=== PATIENT | male | born 1995 | race Caucasian/White ===

== ENCOUNTER → 2020-12-30 02:39 | Outpatient (CLI) | payer BC, SELFPAY ==
[2020-12-30 18:21] LABS: SARS-CoV-2 RNA PCR Negative
== END ==
PROVIDERS: Visit Provider Plastic Surgery
DX: Z01.812 Encounter for preprocedural laboratory examination (principal); Z20.822 Contact with and (suspected) exposure to COVID-19
CPT/HCPCS: C9803; U0003; U0005

== ENCOUNTER 2021-01-02 01:04 | Day surgery (SDC) | payer BC, SELFPAY ==
[2020-12-30 14:32] VITALS: BMI 31.7
[2021-01-02] VITALS (10 sets, daily range): BP systolic 139–156; BP diastolic 73–89; PULSE 64–94; RESP 12–20; TEMP 36.3–36.4; O2SAT 90–100; BMI 32.5
--- NOTE | ~2021-01-02 | XR_ITS ---
EXAMINATION: XR surgery orthopedic DATE: 01/02/2021 10:41 INDICATION: Fixation of closed fractures of the right fourth and fifth metacarpals. TECHNIQUE: 5 fluoroscopic images of the right hand were obtained during procedure performed by Dr. Mitchell. Radiologist was not present for the imaging or procedure. The amount of fluoroscopy time used du ring this procedure was 4.4 minutes. COMPARISON: None. FINDINGS: Distal to proximally directed percutaneous pin fixation spanning a mildly comminuted extra articular fracture at the proximal metadiaphyseal region of the fifth metacarpal. The distal tip of the pin ext ends into the base of the hook of the hamate. There is approximately one cortical with residual dorsa l displacement and minimal palmar angulation. An additional minimally displaced and unfixed small fra cture fragment is seen along the radial side of the main fracture plane. Proximal to distal directed percutaneous pin fixation spanning an oblique extra-articular fracture of the proximal diaphysis of t he fourth metacarpal the which remains in essentially anatomic alignment. Joint spaces appear normal. Expected small amount of postoperative gas in the surrounding soft tissues. IMPRESSION: 1. . Status post pin fixation of extra articular fractures at the proximal aspect of the fourth and f ifth metacarpals, the former in essentially anatomic alignment, the latter in near anatomic alignment . Reviewed, dictated and finalized at location B. ICAL RESOURCE COORDINATOR IMPRESSION: 1. . Status post pin fixation of extra articular fractures at the proximal aspe ct of the fourth and fifth metacarpals, the former in essentially anatomic alig nment, the latter in near anatomic alignment.
--- NOTE | 2021-01-02 07:10 | WPDHPUPDATE1 ---
History and Physical Update Update Date/Time: 01/02/21 07:10 History and Physical has been reviewed, including an updated exam of the patient. There are NO changes in the patient's condition. Risks, benefits, and alternatives have been discussed and questions answered. Patient agrees to proceed with procedure.
--- NOTE | 2021-01-02 07:47 | WPDANESEPPF ---
Anes - Initial Pre Proc Eval Procedure: Operation Date: 01/02/21 09:00 Proposed Procedures p Closed, Possible Open Reduction Internal Fixation Right Fourth and Fifth Metacarpal Shaft Fractures - Hasmukh Odonnell MD Date/Time: 01/02/21 07:47 Surgeon: Hasmukh Odonnell MD Pre Op Diagnosis: fx right 4th and 5th metacarpals Patient Data Age: 25 Gender: M Height: 6 ft 1 in Weight: 109.09 kg Allergies Allergy/AdvReac Type Severity Reaction Status Date / Time No Known Allergies Allergy Unverified 12/30/20 14:36 Home Medications Medication Instructions Recorded Confirmed Type hydrocodone-acetaminophen 1 tablet PO PRN 12/30/20 12/30/20 History Patient hx anesthesia problems: none Family hx anesthesia problems: none [facility] Social History Social History Smoking status: Former smoker Tobacco type: cigarettes Additional smoking assessment comments: smoked for 3 years Drinks per week: 3 Alcohol use details: 3 drinks on weekend Living arrangements: alone Spiritual care concerns: No Anes - Eval Final PreProcedure Day of Procedure 01/02/21 07:47 Patient weight: overweight Heart: regular rate and rhythm Airway: Mallampati scale class II Neurological: alert and oriented Last oral intake: >/= 8 hours ASA classification: II Emergent: no Anesthetic plan: proceed Anesthesia type and monitoring: general LMA and standard monitoring Informed Consent: The patient's anesthetic plan and its attendant risks and benefits were discussed with the patient/family/POA. Questions were solicited and answers provided to the satisfaction of the patient/family/POA.
[2021-01-02] MEDS: LACTATED RINGERS 1,000 ML 30 ML IV CONT (08:05)
[2021-01-02] MEDS: ceFAZolin 2 GM/D5W 50 ML 2 GM/50 ML BAG IVPB (08:41)
[2021-01-02] MEDS: LIDO 1%/EPINEPHRINE 1:100,000 50 ML VIAL INFILTRATE (10:42)
[2021-01-02] MEDS: HYDROmorphone HCL INJ (*CRX) 1 MG/ML SYR IV PUSH ×4 (11:20→11:57)
--- NOTE | 2021-01-02 11:29 | PM.OP ---
Procedure Note - Brief Procedure Note - Brief Date of procedure: 01/02/21 Pre-op diagnosis: fx right 4th and 5th metacarpals Post-op diagnosis: same Procedure performed: ORIF right 4th and 5th metacarpal shafts with Pins. Anesthesia: GLMA Surgeon: Hasmukh Odonnell MD Cnc Set Up Operator: Mani Evangelista Estimated blood loss (mL): 3 Drains: No Packing: No Pathology: none sent Complications: No immediate complications Condition: stable Disposition: PACU
--- NOTE | 2021-01-02 11:30 | PM.PROC ---
Procedure Note - Detailed Date of procedure: 01/02/21 Pre-op diagnosis: fx right 4th and 5th metacarpals Closed extra-articular transverse fractures of the shafts of the right 4th and 5th metacarpals Post-op diagnosis: same Procedure performed: Open reduction internal pin fixation of the right 4th and 5th metacarpal shaft fractures Description of procedure: The right ulnar hand was marked in the holding area. The patient was then taken to the operating room and placed supine on the operating table. A time-out was held and confirmed. He was given general anesthesia with an LMA the extremity was prepped and draped in usual fashion intensifier images were made and the fracture was visualized. A dorsal longitudinal incision was selected between the 4th and 5th metacarpals. Cutaneous nerves were protected. Deeper incisions made radial to the 5th extensors and radial to the 4th extensors were made through periosteum. Both fractures were dissected exposed and freed of clot. Comminution was minimal. We elected to use a Biomet 1.1 mm IM hilton on the 4th. The introducer was placed at the base of the 4th metacarpal and the 1.1 mm pin was driven distally through the very narrow medullary canal with fluoroscopic imaging as the fracture was reduced. Excellent reduction and satisfactory fixation were obtained. The 5th metacarpal fracture which was much more proximally located was fixed with a 0.062 in C wire driven diagonally from the distal shaft across the fracture and the base of the 5th metacarpal and lodged into the hamate. The placement of this pin was carefully evaluated and appears to be lodged into the hook of the hamate. Both pins were cut appropriately and the cap applied to the Biomet medullary hilton. The 0.062 in C-wire in the 5th was bent and rotated to lie roughly parallel to the metacarpal. Neither of these impinged upon extensor tendons. The periosteum and fascial tissue was repaired with 3-0 interrupted Vicryl suture. The skin was closed with a running 5 0 nylon. A bulky bandage with a volar Ortho Glass splint extending from the proximal forearm to the metacarpal heads was applied under the 4th and 5th metacarpals. The site had been had been infiltrated with 1% lidocaine with epinephrine the start of surgery. He had also been given 2 g of Ancef preop. He is discharged with instructions in wound care and follow-up and a prescription for oxycodone 5/325 14. Was sent to pharmacy Surgeon: Hasmukh Odonnell MD
[2021-01-02] MEDS: KETOROLAC 30 MG/ML VIAL (*BKC) IV PUSH (11:40)
[2021-01-02] MEDS: oxyCODONE HCL (*CRX) 5 MG TAB IR PO (12:43)
--- NOTE | 2021-01-02 13:18 | SUR.PHASEII ---
1300- SPOKE WITH DR. ALEXANDER ABOUT PT PAIN LEVEL. DR. ALEXANDER TO BEDSIDE. DRESSING REMOVED AND INCISION EXAMINED. DR. ALEXANDER INJECTED SENSORCAINE 0.5 % WITH EPI. DRESSING REAPPLIED. RT FINGER WARM AND PINK. PT CAN MOVE ALL FINGERS.
== END 2021-01-02 13:39 | disposition home or self-care (01) ==
PROVIDERS: Visit Provider Plastic Surgery
PROC: (CPT 26615; principal; 2021-01-02 09:00)
DX: S62.324A Displaced fracture of shaft of fourth metacarpal bone, right hand, initial encounter for closed fracture (principal); S62.326A Displaced fracture of shaft of fifth metacarpal bone, right hand, initial encounter for closed fracture; Y04.0XXA Assault by unarmed brawl or fight, initial encounter; Z87.891 Personal history of nicotine dependence
CPT/HCPCS: 26615 ×2; A9270; C1713; J0690; J1100; J1170; J1885; J2250; J2405; J2704; J3010; J7120

== ENCOUNTER → 2021-02-13 18:33 | Outpatient (CLI) | payer BC, SELFPAY ==
--- NOTE | ~2021-02-13 | XR_ITS ---
XR hand RT min 3V DATE: 02/13/2021 18:42 INDICATION: Fractures of fourth metacarpal bones TECHNIQUE: 3 views COMPARISON: None FINDINGS: Pins traverse the proximal transverse fourth metacarpal shaft fracture and fifth metacarpal fracture at the junction of the base and proximal shaft, with near-anatomic position and alignment a t these fracture sites. IMPRESSION: Internally fixated fractures of fourth and fifth metacarpal bones Reviewed, dictated and finalized at location A.
== END ==
PROVIDERS: PCP Plastic Surgery; Visit Provider Plastic Surgery
DX: S62.314D Displaced fracture of base of fourth metacarpal bone, right hand, subsequent encounter for fracture with routine healing (principal); S62.316D Displaced fracture of base of fifth metacarpal bone, right hand, subsequent encounter for fracture with routine healing; X58.XXXD Exposure to other specified factors, subsequent encounter
CPT/HCPCS: 73130

== ENCOUNTER → 2021-02-22 01:12 | Outpatient (CLI) | payer BC, SELFPAY ==
[2021-02-22 20:54] LABS: SARS-CoV-2 RNA PCR Negative
== END ==
PROVIDERS: PCP Plastic Surgery; Visit Provider Plastic Surgery
DX: Z01.812 Encounter for preprocedural laboratory examination (principal); Z20.822 Contact with and (suspected) exposure to COVID-19
CPT/HCPCS: C9803; U0003; U0005

== ENCOUNTER 2021-02-26 00:47 | Day surgery (SDC) | payer BC, SELFPAY ==
[2021-02-17 10:21] VITALS: BMI 31.6
--- NOTE | 2021-02-26 07:12 | WPDHPUPDATE1 ---
History and Physical Update Update Date/Time: 02/26/21 07:12 History and Physical has been reviewed, including an updated exam of the patient. There are NO changes in the patient's condition. Risks, benefits, and alternatives have been discussed and questions answered. Patient agrees to proceed with procedure.
--- NOTE | 2021-02-26 07:15 | P.PNAN_ITS ---
Anes - Initial Pre Proc Eval Procedure: Operation Date: 02/26/21 10:30 Proposed Procedures p Removal Of Two Fixation C-Wires, Right Hand - Hasmukh Odonnell MD Date/Time: 02/26/21 07:15 Surgeon: Hasmukh Odonnell MD Pre Op Diagnosis: status post orif right 4th and 5th metacarpal Patient Data Age: 25 Gender: M Height: 1.85 m Weight: 108.9 kg Allergies Allergy/AdvReac Type Severity Reaction Status Date / Time No Known Allergies Allergy Unverified 02/26/21 08:51 Home Medications Medication Instructions Recorded Confirmed Type No Home Medications 02/17/21 02/26/21 History Patient hx anesthesia problems: none Family hx anesthesia problems: none [facility] Social History Social History Smoking status: Former smoker Tobacco type: cigarettes Additional smoking assessment comments: smoked for 3 years Alcohol intake: current Drinks per week: 3 Substance use: never Substance use type: does not use Living arrangements: alone Spiritual care concerns: No Anes - Eval Final PreProcedure Day of Procedure 02/26/21 07:15 Patient weight: obese Heart: regular rate and rhythm Lungs: clear to auscultation and normal air movement Airway: Mallampati scale class II Neurological: alert and oriented Last oral intake: >/= 8 hours ASA classification: II Emergent: no Anesthetic plan: proceed Anesthesia type and monitoring: general GIVS and standard monitoring Informed Consent: The patient's anesthetic plan and its attendant risks and benefits were discussed with the patient/family/POA. Questions were solicited and answers provided to the satisfaction of the patient/family/POA.
[2021-02-26 08:36] VITALS: BP 135/87; PULSE 72; RESP 16; TEMP 36.3; O2SAT 99
[2021-02-26] MEDS: LACTATED RINGERS 1,000 ML 30 ML IV CONT (08:42)
[2021-02-26] MEDS: LIDO 1%/EPINEPHRINE/PF 1:200,000 30 ML VIAL XX (10:37)
[2021-02-26 10:44] VITALS: BP 115/72; PULSE 72; RESP 12; O2SAT 97
--- NOTE | 2021-02-26 10:51 | PM.OP ---
Procedure Note - Brief Procedure Note - Brief Date of procedure: 02/26/21 Pre-op diagnosis: status post orif right 4th and 5th metacarpal Post-op diagnosis: same Procedure performed: Removal of two fixation wires from left hand. Anesthesia: MAC Surgeon: Hasmukh Odonnell MD Tourniquet time (min): 6 Drains: No Packing: No Pathology: none sent Complications: No immediate complications Condition: stable Disposition: same day
--- NOTE | 2021-02-26 10:53 | PM.PROC ---
Procedure Note - Detailed Date of procedure: 02/26/21 Pre-op diagnosis: status post orif right 4th and 5th metacarpal Post-op diagnosis: same Procedure performed: The patient is appropriate hand was marked in the holding area. He was taken to the operating room placed supine on the operating table. A time-out was held and confirmed. He was given IV sedation. The extremity was prepped and draped in usual fashion. The pin sites could be easily identified by palpation each site was infiltrated with 1% lidocaine with epinephrine. The tourniquet was inflated to 250 mmHg. The 2 sites were incised with a 15. Blade. The pins were identified easily and withdrawn without difficulty. The wounds were closed with interrupted 5 0 nylon suture. Small bandage was applied. He is discharge with instructions in wound care and follow-up. No prescriptions were sent with him Anesthesia: MAC Surgeon: Hasmukh Odonnell MD Estimated blood loss (mL): 0 Drains: No Packing: No Pathology: none sent Complications: No immediate complications Condition: stable Disposition: same day
[2021-02-26 11:14] VITALS: BP 118/67; PULSE 66; RESP 16; O2SAT 98
[2021-02-26] MEDS: fentaNYL CITRATE INJ (*CRX) 100 MCG/2 ML VIAL 25 MCG IV PUSH ×4 (11:22→11:43)
[2021-02-26 11:44] VITALS: BP 127/85; PULSE 59; RESP 18; O2SAT 98
[2021-02-26] MEDS: oxyCODONE HCL (*CRX) 5 MG TAB IR PO (11:55)
[2021-02-26 12:06] VITALS: BP 125/84; PULSE 60; RESP 18
== END 2021-02-26 12:08 | disposition home or self-care (01) ==
PROVIDERS: Visit Provider Plastic Surgery
PROC: (CPT 20694; principal; 2021-02-26 10:30)
DX: S62.324D Displaced fracture of shaft of fourth metacarpal bone, right hand, subsequent encounter for fracture with routine healing (principal); S62.326D Displaced fracture of shaft of fifth metacarpal bone, right hand, subsequent encounter for fracture with routine healing; E66.9 Obesity, unspecified; Z68.31 Body mass index [BMI] 31.0-31.9, adult; Z87.891 Personal history of nicotine dependence; Y09 Assault by unspecified means
CPT/HCPCS: 20670 ×2; A9270; J0131; J1100; J1885; J2250; J2405; J2704; J3010; J7120

== ENCOUNTER 2021-05-14 18:44 | Emergency (ER) | payer BC, SELFPAY ==
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
[2021-05-14 18:53] VITALS: BP 133/86; PULSE 96; RESP 14; TEMP 37.6; O2SAT 99
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
[2021-05-14 19:30] VITALS: PULSE 96; RESP 19
[2021-05-14] MEDS: SODIUM CHLORIDE 0.9% IV 1,000 ML 999 ML IV CONT (19:38)
[2021-05-14] MEDS: TETANUS,DIPHTHERIA,AC PERTUSSIS ADULT (0.5 ML) BOOSTRIX IM (19:39)
[2021-05-14] MEDS: MORPHINE SULFATE (*CRX) 4 MG/ML INJ IV PUSH (19:39)
[2021-05-14 19:42] LABS: Basophils Absolute Auto 0.1 K/mm3 (0.0-0.1); Basophils Percent Auto 0.4 % (0.2-1.2); Eosinophils Percent Auto 0.1 % (0-4.4); Hematocrit 47.6 % (42.0-52.0); Hemoglobin 15.5 g/dL (14.0-18.0); Immature Granulocyte Absolute 0.07 K/mm3 (0.00-0.031); Immature Granulocyte Percent A 0.4 % (0-0.5); Lymphocytes Absolute Auto 1.58 K/mm3 (0.9-3.2); Lymphocytes Percent Auto 8.6 % (18.3-44.2); Mean Corpuscular HGB Conc 32.6 g/dl (32-36); Mean Corpuscular Volume 89.1 fl (80-100); Mean Platelet Volume 12.9 fl (7.4-10.4); Monocytes Absolute Auto 1.1 K/mm3 (0.1-0.6); Monocytes Percent Auto 5.8 % (2.6-8.5); Neutrophils Absolute Auto 15.5 K/mm3 (1.3-6.7); Neutrophils Percent Auto 84.7 % (45.5-73.1); Platelet Count Result 204 k/mm3 (150-375); Red Blood Count 5.34 M/mm3 (4.6-6.20); Red Cell Distribution Width 13.2 % (11.5-14.5); White Blood Count 18.3 K/mm3 (4.5-10.0)
[2021-05-14 19:55] LABS: Alanine Aminotransferase 269 U/L (4-50); Albumin Level 4.3 g/dL (3.5-5.1); Alkaline Phosphatase 45 U/L (38-126); Anion Gap 12 mmol/L (8-16); Aspartate Amino Transferase 83 U/L (17-59); Bilirubin,Total 0.9 mg/dL (0.2-1.3); Blood Urea Nitrogen 13 mg/dL (9-20); Calcium 9.6 mg/dL (8.4-10.2); Carbon Dioxide 23 mmol/L (22-30); Chloride 103 mmol/L (98-107); Estimated CRCL calculation 113 ml/min; Estimated Glomerular Filt Rate > 60; Glucose 104 mg/dL (75-110); Lipase 134 U/L (23-300); Sodium 138 mmol/L (137-145)
--- NOTE | 2021-05-14 19:59 | PC.NURSE ---
Asked pt for urine, pt states he can not urinate at this time.
[2021-05-14 20:29] LABS: Prothrombin Time 12.7 Seconds (11.1-14.7)
[2021-05-14 20:31] LABS: Partial Thromboplastin Time 22.8 SECONDS (22.3-36.8)
[2021-05-14 22:28] VITALS: BP 158/86; PULSE 78; RESP 16; TEMP 36.7; O2SAT 100
== END 2021-05-14 22:29 | disposition home or self-care (01) ==
PROVIDERS: Emergency Medicine Emergency Medical Services; Emergency Provider Family Medicine
DX: S32.028A Other fracture of second lumbar vertebra, initial encounter for closed fracture (principal); S32.038A Other fracture of third lumbar vertebra, initial encounter for closed fracture; S40.811A Abrasion of right upper arm, initial encounter; T14.8XXA Other injury of unspecified body region, initial encounter; Z87.891 Personal history of nicotine dependence; V86.56XA Driver of dirt bike or motor/cross bike injured in nontraffic accident, initial encounter; Z23 Encounter for immunization
CPT/HCPCS: 36415; 70450; 71260; 72125; 74177; 80053; 83690; 85025; 85610; 85730; 90471; 90715; 96361; 96374; 99284; J2270; J7030; Q9967

== ENCOUNTER → 2021-06-05 13:37 | Outpatient (CLI) | payer BC, SELFPAY ==
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
== END ==
PROVIDERS: Visit Provider Nurse Practitioner Adult Health
DX: S32.020A Wedge compression fracture of second lumbar vertebra, initial encounter for closed fracture (principal); X58.XXXA Exposure to other specified factors, initial encounter; M47.894 Other spondylosis, thoracic region; M47.896 Other spondylosis, lumbar region
CPT/HCPCS: 72146; 72148